=== PATIENT | male | born 1980 | race Caucasian/White ===

== ENCOUNTER 2019-06-04 15:13 | Emergency (ER) | payer SELFPAY ==
[~2019-06-04] VITALS: Ht 172.7 cm; Wt 108.9 kg
[2019-06-04 16:09] VITALS: BP_SYST 159
[2019-06-04 18:50] VITALS: BP_SYST 159
== END 2019-06-04 18:50 | disposition home or self-care (01) ==
LOC: SED 15:13
DX: S93.401A Sprain of unspecified ligament of right ankle, initial encounter (principal); W10.8XXA Fall (on) (from) other stairs and steps, initial encounter; Y93.89 Activity, other specified; Y92.89 Other specified places as the place of occurrence of the external cause; Y99.8 Other external cause status
CPT/HCPCS: 99283